=== PATIENT | male | born 1990 | race African-American/Black ===

== ENCOUNTER 2017-03-14 09:43 | Emergency (ER) | payer SELFPAY | END 2017-03-14 10:20 | disposition home or self-care (01) | LOC: ERS 09:43 | DX: J11.1 Influenza due to unidentified influenza virus with other respiratory manifestations (principal); F17.210 Nicotine dependence, cigarettes, uncomplicated | CPT/HCPCS: 99283 ==

== ENCOUNTER 2017-10-15 21:18 | Emergency (ER) | payer SELFPAY ==
--- NOTE | 2017-10-15 23:35 | RAD ---
RIGHT SHOULDER THREE VIEWS: INDICATIONS: Right shoulder injury. COMPARISON: None. FINDINGS: No acute fracture or subluxation is evident. The visualized right lung is clear. IMPRESSION: No acute osseous abnormality. POS: [facility]
--- NOTE | 2017-10-15 23:35 | RAD ---
RIGHT WRIST THREE VIEWS: INDICATIONS: Right wrist injury. COMPARISON: None. FINDINGS: No acute fracture or subluxation is evident. No radiopaque foreign body is noted. IMPRESSION: No acute osseous abnormality. POS: [facility]
--- NOTE | 2017-10-15 23:37 | RAD ---
LEFT SHOULDER THREE VIEWS: INDICATIONS: Left shoulder pain. COMPARISON: Prior exam dated 03/11/2011. FINDINGS: Hill-Sachs deformity is seen involving the posterior-superior humeral head. No acute fracture or sub luxation is evident. IMPRESSION: Hill-Sachs deformity of the left humeral head. No acute fracture or subluxation is demonstrated. POS: [facility]
== END 2017-10-15 23:10 | disposition home or self-care (01) ==
LOC: ERS 21:18
DX: S63.501A Unspecified sprain of right wrist, initial encounter (principal); M21.822 Other specified acquired deformities of left upper arm; S43.402A Unspecified sprain of left shoulder joint, initial encounter; F17.210 Nicotine dependence, cigarettes, uncomplicated; Y04.0XXA Assault by unarmed brawl or fight, initial encounter
CPT/HCPCS: 96372; 99406